=== PATIENT | male | born 2000 | race Caucasian/White ===

== ENCOUNTER 2020-06-30 09:28 | Emergency (ER) | payer OTHER ==
[2020-06-30] MEDS ORDERED: Bupivacaine 0.25% 10 ML VIAL ONE (10:15)
[2020-06-30] MEDS ORDERED: Lidocaine 1% PF 5 ML VIAL ONE (10:15)
== END 2020-06-30 12:18 | disposition home or self-care (01) ==
LOC: ERS 09:28
DX: S61.112A Laceration without foreign body of left thumb with damage to nail, initial encounter (principal); W26.0XXA Contact with knife, initial encounter; Y99.0 Civilian activity done for income or pay
CPT/HCPCS: 12001; S0020

== ENCOUNTER 2020-07-14 10:31 | Emergency (ER) | payer SELFPAY | END 2020-07-14 12:09 | disposition home or self-care (01) | LOC: ERS 10:31 | DX: S61.011D Laceration without foreign body of right thumb without damage to nail, subsequent encounter (principal); X58.XXXD Exposure to other specified factors, subsequent encounter ==